=== PATIENT | female | born 1980 | race African-American/Black ===

== ENCOUNTER 2018-10-26 11:30 | Emergency (ER) | payer MEDICAID ==
[~2018-10-26] VITALS: Ht 167.6 cm; Wt 90.7 kg
[2018-10-26] MEDS ORDERED: OMEPRAZOLE40 M1 ORAL (11:42)
[2018-10-26 11:58] VITALS: BP 109/76
--- NOTE | 2018-10-26 12:20 | Emergency Room Report ---
History of Present Illness General Chief Complaint: Nausea, Vomiting, and Diarrhea Source: Patient Present Illness HPI 38-year-old female patient presents the ER complaining of vomiting and diarrhea since this morning. Reports generalized abdominal pain that is worse in the suprapubic region bilaterally during this time. Reports pain is intermittent. Reports last episode of vomiting earlier today. Denies eating food prior to vomiting. Denies recent travel outside the country. Denies blood in vomit or stool. Denies coffee-ground emesis. Reports he was out drinking alcohol last night. Denies marijuana or drug use. Denies smoking cigarettes. Reports is a social drinker. Patient currently be seen in the ER with her daughter who is here for vomiting symptoms as well. Denies other aggravating or relieving factors. Reports "feeling thirsty" and states she believes she could drink water without throwing up at this time. Denies dysuria, hematuria. States is able to pass flatus. Allergies: Coded Allergies: No Known Allergies (Unverified , 10/26/18) Patient History Past Medical History: see triage record Last Menstrual Period: 09/2018 Now: No Reviewed Nursing Documentation: PMH: Agreed; PSxH: Agreed Nursing Documentation-PMH Past Medical History: No History, Except For Review of Systems All Other Systems: negative except mentioned in HPI Physical Exam Vital Signs Date Time Temp Pulse Resp B/P (MAP) Pulse Ox O2 Delivery O2 Flow Rate FiO2 10/26/18 11:39 100.0 106 19 109/76 96 Room Air Sp02 EP Interpretation: reviewed, normal General Appearance: well appearing, no apparent distress, alert, GCS 15, non- toxic Head: normocephalic, atraumatic Eyes: bilateral eye normal inspection, bilateral eye PERRL ENT: hearing grossly normal, normal pharynx, no angioedema, normal voice, uvula midline, moist mucus membranes Neck: full range of motion, no meningismus, no bony tend Respiratory: lungs clear, normal breath sounds, no rhonchi, no respiratory distress, no accessory muscle use, no wheezing, speaking full sentences Gastrointestinal: soft, no mass, non-distended, no guarding, no rebound, tenderness - Generalized, suprapubic, diffuse, other - Negative Rovsing, negative obturator, negative heel strike Genitourinary: no CVA tenderness Musculoskeletal: back normal, digits/nails normal, gait/station normal, normal range of motion, non-tender Neurologic: alert, oriented x3, responsive, motor strength/tone normal, sensory intact Psychiatric: mood/affect normal Skin: no rash Medical Decision Making PA Attestation Dr. Pérez is my supervising Physician whom patient management has been discussed with. Diagnostic Impression: Primary Impression: Nausea, vomiting, and diarrhea ER Course Pt. presents to the ED c/o vomiting, diarrhea and abdominal pain. Ddx considered but are not limited to viral syndrome, gastritis, enteritis, food poisoning, GERD, reflux. Vital signs: are WNL, pt. is afebrile at discharge. ED COURSE: Provide with Zofran, GI cocktail, Tylenol in the ER. Physical exam benign, no abdominal TTP, negative Martini sign, negative Rovsing, negative obturator, low suspicion for appendicitis or cholecystitis, does not require labs or imaging at this time. No fever, no blood in stool, no recent travel or hospitalizations, does not require abx treatment at this time. No signs of dehydration, moist mucus membranes, cap refill <2seconds, normal skin turgor. UA unremarkable, negative nitrites, patient denies dysuria, hematuria, low suspicion for urinary tract infection, does not require antibiotics at this time. Patient reports feeling better, denies acute complaints, states she is okay for outpatient follow-up. Able to tolerate p.o. fluids well in the ER. Patient history consistent with likely food poisoning, will provide Zofran in the ER. . Patient instructed on BRAT diet. Patient instructed to remain hydrated, drink plenty of fluids. Patient questions asked and answered. Patient states understanding and agreement to treatment plan. ER precautions given, return to ER for new or worsening of symptoms. DISCHARGE: Rx provided for zofran At this time pt. is stable for d/c to home. Patient is resting comfortably, laughing, in no acute distress, nontoxic appearing. Will provide printed patient care instructions, and any necessary prescriptions. Care plan and follow up instructions have been discussed with the patient prior to discharge. Patient instructed to followup with PCP in 3-5 days. Patient reports understanding and agreement to treatment plan. Patient questions asked and answered. ER precautions given; patient instructed to return to ER for new or worsening of symptoms including but not limited to fever, intractable vomiting, severe abdominal pain, blood in stool. - Please note that this Emergency Department Report was dictated using [employer] delive[employer] and installer technology software, occasionally this can lead to erroneous entry secondary to interpretation by the dictation equipment. Labs Test 10/26/18 12:20 Urine Color Yellow Urine Appearance Clear Urine pH 7 (4.5-8.0) Urine Specific [place] 1.005 (1.005-1.035) Urine Protein 1+ (NEGATIVE) Urine Glucose (UA) Negative (NEGATIVE) Urine Ketones 2+ (NEGATIVE) Urine Blood 2+ (NEGATIVE) Urine Nitrite Negative (NEGATIVE) Urine Bilirubin Negative (NEGATIVE) Urine Urobilinogen 1 MG/DL (0.0-1.0) Urine Leukocyte Esterase 1+ (NEGATIVE) Urine RBC 2-4 /HPF (0 - 2) Urine WBC 0-2 /HPF (0 - 2) Urine Squamous Epithelial Cells Few /LPF (NONE/OCC) Urine Bacteria Occasional /HPF (NONE) Urine HCG, Qualitative Negative (NEGATIVE) Last Vital Signs Date Time Temp Pulse Resp B/P (MAP) Pulse Ox O2 Delivery O2 Flow Rate FiO2 10/26/18 11:58 100.0 97 19 109/76 96 Room Air Status: improved Disposition: HOME, SELF-CARE Condition: Stable Scripts Ondansetron* (ZOFRAN*) 4 Mg Tablet 4 MG ORAL Q6H PRN for Nausea & Vomiting, #10 TAB Prov: Catrachito Sullivan 10/26/18 Patient Instructions: Abdominal Pain, Adult, [id number], Diarrhea, Adult, [id number], Food Choices to Help Relieve Diarrhea, Adult, Nausea and Vomiting , Adult, [id number] Additional Instructions: Followup with primary care provider in 2-3 days. Avoid spicy foods, avoid dairy foods. BRAT diet: bananas, rice, apple sauce, toast. Consider Immodium for diarrhea and Tylenol for pain symptoms. Drink plenty of fluids. Take medications as directed. Patient questions asked and answered. ER precautions given, patient instructed to return to ER immediately for any new or worsening of symptoms including but not limited to intractable vomiting, blood in vomit or stool, shortness of breath, worsening of abdominal pain. Catrachito Sullivan Oct 26, 2018 12:20
[2018-10-26] MEDS ORDERED: Mylanta II UD 30ml ORAL ONE (12:30)
[2018-10-26] MEDS ORDERED: Dicyclomine HCl 10mg/5ml oral soln ORAL ONE (12:30)
[2018-10-26] MEDS ORDERED: Lidocaine 2% Visc 15ml soln ORAL ONE (12:30)
[2018-10-26 13:07] LABS: APPEARANCE,URINE CLEAR; BILIRUBIN, URINE NEGATIVE (NEGATIVE); GLUCOSE, URINE (UA) NEGATIVE (NEGATIVE); KETONES,URINE 2+ (NEGATIVE); LEUKOCYTE ESTERASE ,URINE 1+ (NEGATIVE); NITRITE,URINE NEGATIVE (NEGATIVE); PH,URINE 7 (4.5-8.0); PROTEIN,URINE 1+ (NEGATIVE); UROBILINOGEN,URINE 1 MG/DL (0.0-1.0)
[2018-10-26 13:09] LABS: COLOR,URINE YELLOW
[2018-10-26] MEDS ORDERED: ZOFRAN4 M3 ORAL (13:38)
== END 2018-10-26 13:50 | disposition home or self-care (01) ==
LOC: EMR 13:50
DX: R11.2 Nausea with vomiting, unspecified (principal); R19.7 Diarrhea, unspecified; R10.9 Unspecified abdominal pain
CPT/HCPCS: 81003; 81025; 99283